=== PATIENT | female | born 1975 | race Caucasian/White ===

== ENCOUNTER 2017-10-09 00:51 | Emergency (ER) | payer MEDICAID ==
[~2017-10-09] VITALS: Ht 144.8 cm; Wt 59.9 kg
[2017-10-09 01:03] VITALS: Ht 144.8 cm; Wt 59.9 kg
[2017-10-09 03:28] VITALS: BP 158/93
== END 2017-10-09 03:28 | disposition home or self-care (01) ==
LOC: ED 00:51
DX: G43.909 Migraine, unspecified, not intractable, without status migrainosus (principal)
CPT/HCPCS: J1100; J1885; J2270; J2765; J7030